=== PATIENT | male | born 1950 | race Caucasian/White ===

== ENCOUNTER 2024-03-24 11:38 | Day surgery (SDC) | payer MEDICARE ==
[2024-03-24] MEDS ORDERED: Sodium Chloride 0.9(Preservative Free) 10 ML IJ ONE (11:39)
[2024-03-24] MEDS ORDERED: Decadron 4 MG INJ IV ONE (11:39)
[2024-03-24] MEDS ORDERED: Lactated Ringers 1,000 ML IV ONE (12:26)
[2024-03-24] MEDS ORDERED: DIPRIVAN 200 MG/20 ML IV ONE (12:34)
[2024-03-24] MEDS ORDERED: MORPHINE SULFATE 2 MG INJ ONE (12:47)
--- NOTE | 2024-03-24 14:59 | XRAY ---
Indication: Right L4-S1 transforaminal GRAHAM. Intraoperative fluoroscopy provided for 20 seconds. 6 digital spot image submitted for interpretation demonstrates posterior needle tips projecting over the expected right L4 and L5 nerve roots. Small amount of contrast injected free needle tip placement. Correlate with intraoperative findings/report.
--- NOTE | 2024-03-24 17:20 | XRAY ---
20 seconds of fluoroscopy was used in surgery for a right L4-S1 transforaminal GRAHAM.
== END 2024-03-24 13:08 | disposition home or self-care (01) ==
LOC: SDC-PAIN 11:38
PROVIDERS: ATTEND Psychiatry & Neurology Pain Medicine
DX: M54.16 Radiculopathy, lumbar region (principal)
CPT/HCPCS: 64483; 64484; 72100; 77003; J1100; J2270; J2704; Q9966